=== PATIENT | male | born 1960 | race Caucasian/White ===

== ENCOUNTER 2019-09-23 13:41 | Outpatient (CLI) | payer OTHER, SELFPAY ==
--- NOTE | 2019-09-23 13:52 | XR_ITS ---
WS: [id number] LATERAL LUMBAR SPINE: 3 view. Lateral radiographs are performed in upright neutral, flexion and extension to the patient's toleranc e. HISTORY: INTERVERTEBRAL DISC DISORDER WITH RADICULOPATHY OF LUMBOSACRAL SPINE. COMPARISON: None available. Retrolisthesis of L1-L4. 3 mm retrolisthesis of L2 and L3 without significant instability. There is s light retrolisthesis of L1 and L4 by 2 mm without instability. Hypertrophic endplate osteophytes at a ll level. No fractures. Facet joint arthropathy is mild at L5-S1. 1. Mild retrolisthesis of L1-L4 without instability demonstrated. 2. Moderate spondylosis. XR/XR lumbar spine f/e only [id number] IMPRESSION:
--- NOTE | 2019-09-23 13:53 | MR_ITS ---
WS: [id number] MRI LUMBAR SPINE NONCONTRAST HISTORY: INTERVERTEBRAL DISC DISORDER WITH RADICULOPATHY OF LUMBOSACRAL SPINE. COMPARISON: None available. TECHNIQUE: Sagittal and axial multisequence imaging is submitted. Mild disc desiccation and disc bulging in the lower cervical spine. At T7-8 there may be a small disc protrusion effacing the ventral CSF. Thoracic cord is slightly widened. On the sagittal survey image of the spine there is increased T2 signal in the central cord beginning at T8 vertebral body extendi ng to the T11-12 disc level. Straightening of the normal lumbar lordosis. Benign hemangiomas within L3 and T11. Mild desiccation of the disc spaces throughout the lumbar spine. Conus terminates normally at L1-2 disc level. L1-L2: No stenosis. Mild bilateral facet arthropathy. L2-L3: Mild annular disc bulging with mild facet and ligamentum flavum arthropathy. No significant st enosis. L3-L4: Moderate facet joint arthropathy with fluid in the facet joints. Annular disc bulging and smal l vertebral body osteophytes. Mild central and bilateral foraminal stenosis. L4-L5: Annular disc bulging with ligamentum flavum and facet joint arthropathy. Very small central di sc protrusion. Moderate central and bilateral foraminal stenosis. L5-S1: Annular disc bulging and osteophytic ridging. No significant central stenosis. Moderate bilate ral foraminal stenosis and a small amount of fluid in the LEFT facet joint. RIGHT renal cyst measures 2.5 cm. MR/MR lumbar spine wo con* [id number] IMPRESSION: 1. Moderate central and bilateral foraminal stenosis at L4-5. 2. Moderate bilateral foraminal stenosis at L5-S1. 3. Mild central and bilateral foraminal stenosis at L3-4. 4. Increased T2 signal in the thoracic cord suspicious for syrinx. Recommend f ollow-up MRI thoracic spine with contrast. There is very slight widening of the thoracic cord at T7-8. This can also be reevaluated by follow-up MRI thoracic spine with contrast.
== END 2019-09-23 13:42 | disposition home or self-care (01) ==
LOC: RADWPI 13:45
PROVIDERS: Family Provider Family Medicine; PCP Family Medicine; Referring Provider Family Medicine; Visit Provider Licensed Practical Nurse
DX: M51.17 Intervertebral disc disorders with radiculopathy, lumbosacral region (principal); M48.061 Spinal stenosis, lumbar region without neurogenic claudication; M48.07 Spinal stenosis, lumbosacral region; M47.896 Other spondylosis, lumbar region
CPT/HCPCS: 72120; 72148

== ENCOUNTER 2019-10-11 10:27 | Outpatient (RCR) | payer OTHER, SELFPAY | END 2019-10-15 23:59 | disposition home or self-care (01) | LOC: SPT 10:27 | PROVIDERS: Family Provider Family Medicine; PCP Family Medicine; Visit Provider Licensed Practical Nurse | DX: M51.17 Intervertebral disc disorders with radiculopathy, lumbosacral region (principal) | CPT/HCPCS: 97110; 97162; G0283 ==

== ENCOUNTER 2019-10-18 06:00 | Outpatient (RCR) | payer OTHER, SELFPAY | END 2019-11-13 23:59 | disposition home or self-care (01) | LOC: SPT 06:00 | PROVIDERS: Family Provider Family Medicine; PCP Family Medicine; Visit Provider Licensed Practical Nurse | DX: M51.17 Intervertebral disc disorders with radiculopathy, lumbosacral region (principal) | CPT/HCPCS: 97110; G0283 ==

== ENCOUNTER 2019-11-05 12:27 | Outpatient (CLI) | payer OTHER, SELFPAY ==
--- NOTE | 2019-11-05 13:00 | MR_ITS ---
WS: [id number] MRI THORACIC SPINE WITH CONTRAST TECHNIQUE: Sagittal T1, T2 and STIR imaging. Axial T2 imaging. Post gadolinium imaging was obtained. CLINICAL INFORMATION: Syrinx COMPARISON: MRI lumbar September 23, 2019 FINDINGS: Images moderately degraded by patient motion. Mild thoracic curve. Mild thoracic kyphosis. No acute compression fractures. Hypertrophic changes tho racic spine. Tiny syrinx within the mid and lower thoracic cord most prominent extending from T7 dist ally. No abnormal gadolinium enhancement. Tiny syrinx measures 1.5 mm in maximum AP dimension. Cord s ignal is otherwise normal. Small left pericentral disc protrusion mid thoracic spine at T7-8. Spinal canal is patent. Moderate f acet arthropathy lower thoracic spine. Incidental hemangiomas in the mid and lower thoracic spine mor e prominent at T5. MR/MR thoracic spine wo/w [id number] IMPRESSION: 1. Tiny syrinx within the mid and lower thoracic cord extending to the conus. Syrinx measures 1.5 mm in maximum dimension. 2. No abnormal gadolinium enhancement. 3. Cord signal is otherwise normal. 4. Tiny left pericentral protrusion in the mid thoracic spine at T7-8 without significant central canal stenosis. 5. Hypertrophic changes thoracic spine.
== END 2019-11-05 12:28 | disposition home or self-care (01) ==
LOC: RADSHAW 12:28
PROVIDERS: Family Provider Family Medicine; PCP Family Medicine; Visit Provider Licensed Practical Nurse
DX: G95.0 Syringomyelia and syringobulbia (principal); M51.24 Other intervertebral disc displacement, thoracic region
CPT/HCPCS: 72157; A9579

== ENCOUNTER 2019-11-14 06:00 | Outpatient (RCR) | payer OTHER, SELFPAY | END 2019-12-14 23:59 | disposition home or self-care (01) | LOC: SPT 06:00 | PROVIDERS: Family Provider Family Medicine; PCP Family Medicine; Visit Provider Licensed Practical Nurse | DX: M51.17 Intervertebral disc disorders with radiculopathy, lumbosacral region (principal) | CPT/HCPCS: 97110; G0283 ==

== ENCOUNTER → 2020-06-09 09:55 | Outpatient (BNVA) | payer BC, OTHER, SELFPAY | PROVIDERS: Family Provider Family Medicine; PCP Family Medicine; Visit Provider Nurse Practitioner Family | DX: R10.9 Unspecified abdominal pain (principal); M48.062 Spinal stenosis, lumbar region with neurogenic claudication | CPT/HCPCS: 81000 ==

== ENCOUNTER → 2021-04-16 11:38 | Outpatient (BNVA) | payer OTHER, BC, SELFPAY | PROVIDERS: Family Provider Family Medicine; PCP Family Medicine; Visit Provider Nurse Practitioner Family | DX: Z20.822 Contact with and (suspected) exposure to COVID-19 (principal) | CPT/HCPCS: 87635 ==

== ENCOUNTER → 2022-01-23 13:06 | Outpatient (BNVA) | payer OTHER, SELFPAY | PROVIDERS: Family Provider Family Medicine; PCP Nurse Practitioner Family; Referring Provider Nurse Practitioner; Visit Provider Orthopaedic Surgery | DX: M19.032 Primary osteoarthritis, left wrist (principal) | CPT/HCPCS: 99203 ==

== ENCOUNTER → 2023-04-01 14:30 | Outpatient (BNVA) | payer OTHER, SELFPAY | PROVIDERS: Family Provider Family Medicine; PCP Nurse Practitioner Family; Visit Provider Podiatrist Foot & Ankle Surgery | DX: L60.0 Ingrowing nail (principal); E11.40 Type 2 diabetes mellitus with diabetic neuropathy, unspecified; Z79.84 Long term (current) use of oral hypoglycemic drugs | CPT/HCPCS: 99203 ==

== ENCOUNTER → 2023-05-27 12:41 | Outpatient (BNVA) | payer OTHER, SELFPAY | PROVIDERS: Family Provider Family Medicine; PCP Nurse Practitioner Family; Visit Provider Podiatrist Foot & Ankle Surgery | DX: L60.0 Ingrowing nail (principal); M79.671 Pain in right foot | CPT/HCPCS: 11750 ==

== ENCOUNTER → 2023-06-20 09:57 | Outpatient (BNVA) | payer OTHER, SELFPAY | PROVIDERS: Family Provider Family Medicine; PCP Nurse Practitioner Family; Visit Provider Podiatrist Foot & Ankle Surgery | DX: L60.0 Ingrowing nail (principal) | CPT/HCPCS: 99213 ==

== ENCOUNTER → 2024-11-22 07:53 | Outpatient (BNVA) | payer OTHER, SELFPAY | PROVIDERS: Family Provider Family Medicine; PCP Nurse Practitioner Family; Visit Provider Nurse Practitioner Family | DX: D18.01 Hemangioma of skin and subcutaneous tissue (principal); L81.4 Other melanin hyperpigmentation; L57.8 Other skin changes due to chronic exposure to nonionizing radiation; L57.0 Actinic keratosis | CPT/HCPCS: 17000; 99203 ==

== ENCOUNTER → 2025-02-04 08:25 | Outpatient (BNVA) | payer OTHER, SELFPAY | PROVIDERS: Family Provider Family Medicine; PCP Nurse Practitioner Family; Referring Provider Nurse Practitioner; Visit Provider Nurse Practitioner Family | DX: M48.062 Spinal stenosis, lumbar region with neurogenic claudication (principal) | CPT/HCPCS: 99214 ==

== ENCOUNTER → 2025-02-08 13:12 | Outpatient (BNVA) | payer OTHER, SELFPAY | PROVIDERS: Family Provider Family Medicine; PCP Nurse Practitioner Family; Visit Provider Nurse Practitioner Family | DX: M79.10 Myalgia, unspecified site (principal); M48.062 Spinal stenosis, lumbar region with neurogenic claudication | CPT/HCPCS: 20553; 99214 ==

== ENCOUNTER → 2025-02-22 10:30 | Outpatient (BNVA) | payer OTHER, SELFPAY | PROVIDERS: PCP Nurse Practitioner; Visit Provider Nurse Practitioner Family | DX: M48.062 Spinal stenosis, lumbar region with neurogenic claudication (principal) | CPT/HCPCS: 99214 ==

== ENCOUNTER 2025-02-24 08:57 | Outpatient (RCR) | payer OTHER, SELFPAY | END 2025-03-14 23:59 | disposition home or self-care (01) | LOC: SPT 08:57 | PROVIDERS: PCP Nurse Practitioner; Visit Provider Nurse Practitioner Family | DX: M48.062 Spinal stenosis, lumbar region with neurogenic claudication (principal) | CPT/HCPCS: 97110; 97161; 97530 ==

== ENCOUNTER 2025-03-15 05:00 | Outpatient (RCR) | payer OTHER, SELFPAY | END 2025-04-14 23:59 | disposition home or self-care (01) | LOC: SPT 05:00 | PROVIDERS: PCP Nurse Practitioner; Visit Provider Nurse Practitioner Family | DX: M48.062 Spinal stenosis, lumbar region with neurogenic claudication (principal) | CPT/HCPCS: 97110; 97530 ==

== ENCOUNTER → 2025-05-05 10:36 | Outpatient (BNVA) | payer OTHER, SELFPAY | PROVIDERS: PCP Nurse Practitioner; Visit Provider Nurse Practitioner Family | DX: M48.062 Spinal stenosis, lumbar region with neurogenic claudication (principal) | CPT/HCPCS: 99214 ==

== ENCOUNTER 2025-05-30 07:33 | Outpatient (CLI) | payer OTHER, SELFPAY ==
--- NOTE | 2025-05-30 08:00 | CT_ITS ---
WS: [id number] CT LUMBAR SPINE, noncontrast. HISTORY: M54.16 - Radiculopathy, lumbar region TECHNIQUE: Contiguous 2.0 mm axial imaging are performed. Sagittal and coronal reformats are submitted and reviewed. All CT scans at [facility] use at least one of these dose optimization techniques: automated exposure control; mA and/or kV adjustment per patient size (includes targeted exams where dose is matched to clinical indication); or iterative reconstruction. IV contrast: None DLP: 933.80 mGy.cm COMPARISON: Prior CT 01/15/2019 Normal lumbar alignment. Disc spaces are well preserved. Large anterior osteophytes at all levels. No compression fractures. Spinal cord stimulator wire entrance noted above the T12 level. L1-2: Mild disc bulging with osteophytic ridging. No significant stenosis. L2-3: Mild annular disc bulging, ligamentum flavum and facet arthritis. Small bilateral foraminal disc osteophyte complexes. Mild central, subarticular recess and foraminal stenosis. L3-4: Mild annular disc bulging with ligamentum flavum and facet arthritis. Mild central, subarticular recess and foraminal stenosis. L4-5: Diffuse moderate annular disc bulging with osteophytic ridging and mild facet arthritis. Small central disc protrusion. Moderate central, bilateral subarticular recess and foraminal stenosis due to disc and osteophyte disease. L5-S1: Broad-based annular disc protrusion with mild osteophytic ridging. Bilateral facet joint arthropathy. Moderate central, subarticular recess and moderate bilateral foraminal stenosis. There is disc osteophyte contact on the L5 and S1 nerve roots. Paravertebral soft tissues are negative. Mild atherosclerosis aorta. CT/CT lumbar spine wo con* [id number] IMPRESSION: 1. L4-5 and L5-S1: Moderate central, bilateral subarticular recess and foramin al stenosis due to disc and osteophyte disease. Minimal change since 2019. 2. Mild central, subarticular recess and foraminal stenosis at L2-3 and L3-4. 3. No compression fractures.
== END 2025-05-30 07:34 | disposition home or self-care (01) ==
LOC: RAD 07:34
PROVIDERS: PCP Nurse Practitioner; Visit Provider Nurse Practitioner Family
DX: M54.16 Radiculopathy, lumbar region (principal)
CPT/HCPCS: 72131

== ENCOUNTER → 2025-06-08 09:42 | Outpatient (BNVA) | payer OTHER, SELFPAY | PROVIDERS: PCP Nurse Practitioner; Visit Provider Nurse Practitioner Family | DX: M48.062 Spinal stenosis, lumbar region with neurogenic claudication (principal) | CPT/HCPCS: 99214 ==

== ENCOUNTER → 2025-06-22 14:06 | Outpatient (BNVA) | payer OTHER, SELFPAY | PROVIDERS: PCP Nurse Practitioner; Visit Provider Anesthesiology Pain Medicine | DX: M54.16 Radiculopathy, lumbar region (principal); E11.9 Type 2 diabetes mellitus without complications | CPT/HCPCS: 36416; 64483; 64484; J1100; J3490; J9999 ==

== ENCOUNTER → 2025-06-23 14:13 | Outpatient (BNVA) | payer OTHER, SELFPAY | PROVIDERS: PCP Nurse Practitioner; Visit Provider Anesthesiology Pain Medicine | DX: E11.9 Type 2 diabetes mellitus without complications (principal); Z01.818 Encounter for other preprocedural examination | CPT/HCPCS: 36416; 82962 ==

== ENCOUNTER → 2025-06-27 10:39 | Outpatient (BNVA) | payer OTHER, SELFPAY | PROVIDERS: PCP Nurse Practitioner; Visit Provider Orthopaedic Surgery | DX: M25.511 Pain in right shoulder (principal); G89.29 Other chronic pain; M75.31 Calcific tendinitis of right shoulder | CPT/HCPCS: 73030; 99204 ==

== ENCOUNTER 2025-07-18 11:01 | Outpatient (CLI) | payer OTHER, SELFPAY ==
--- NOTE | 2025-07-18 11:45 | MR_ITS ---
WS: [id number] MRI RIGHT SHOULDER HISTORY: Shoulder pain. COMPARISON: Radiograph 06/27/2025 TECHNIQUE: Multiplanar sequences of the shoulder joint are submitted. Moderate to severe AC joint arthritis. Large osteophytes from the distal clavicle and the acromion encroach upon the myotendinous portion of the supraspinatus. There is deformity of the supraspinatus. Small erosions involving the distal clavicle and the acromion. Mild subacromial impingement by an enth esopathy. No os acromion. Normal position of the biceps tendon. There is mild increased T2 signal in the biceps tendon as it crosses over the lesser tuberosity. Mild increased fluid in the biceps tendon sheath. No rotator cuff muscle atrophy or edema. Intrasubstance tear in the distal infraspinatus tendon. This is a short tear measuring approximately 6 mm. Tendinopathy in the distal supraspinatus tendon but no tear identified. Subscapularis tendon is intact. Joint effusion surrounding the humeral head. Subchondral cysts in the posterior tuberosity. No labral tear is identified. There is very slight blunting of the superior labrum. Subchondral cyst in the posterior glenoid near the labral attachment. MR/MR shoulder RT wo con* [id number] IMPRESSION: 1. Moderate to severe AC joint arthritis. Osteophytes encroach upon the myoten dinous portion of the supraspinatus. 2. Mild tendinopathy in the biceps tendon as it extends over the greater tuber osity. 3. Short segment tear in the distal infraspinatus tendon. This is probably an interstitial tear. 4. No rotator cuff muscle atrophy or edema. 5. Very slight blunting of the superior labrum. There is also a small cyst shy r the posterior labral attachment to the glenoid.
== END 2025-07-18 11:02 | disposition home or self-care (01) ==
LOC: RAD 11:02
PROVIDERS: PCP Nurse Practitioner; Visit Provider Orthopaedic Surgery
DX: M19.011 Primary osteoarthritis, right shoulder (principal); S46.011A Strain of muscle(s) and tendon(s) of the rotator cuff of right shoulder, initial encounter; X58.XXXA Exposure to other specified factors, initial encounter; G89.29 Other chronic pain
CPT/HCPCS: 73221; 99213

== ENCOUNTER → 2025-07-19 13:46 | Outpatient (BNVA) | payer OTHER, SELFPAY | PROVIDERS: PCP Nurse Practitioner; Visit Provider Anesthesiology Pain Medicine | DX: M54.16 Radiculopathy, lumbar region (principal) | CPT/HCPCS: 36416; 64483; 64484; 82962; J1100; J3490; J9999 ==

== ENCOUNTER → 2025-08-02 09:52 | Outpatient (BNVA) | payer OTHER, SELFPAY | PROVIDERS: PCP Nurse Practitioner; Visit Provider Nurse Practitioner Family | DX: M48.062 Spinal stenosis, lumbar region with neurogenic claudication (principal) | CPT/HCPCS: 99214 ==